=== PATIENT | female | born 1935 | race Caucasian/White ===

== ENCOUNTER 2022-01-16 14:32 | Outpatient (CLI) | payer MEDICARE, BC ==
[2022-01-16 15:37] LABS: Hemoglobin 11.4 g/dL (12.0-15.5); Mean Corpuscular HGB CONC 31.5 g/dL (32.0-36.0); Mean Corpuscular Hemoglobin 30.5 pg (27.0-33.0); Mean Corpuscular Volume 96.8 fl (81.6-98.3); Mean Platelet Volume 10.8 fl (7.4-10.4); Platelet Count 306 10x3/uL (150-450); RBC Distribution Width 15.5 % (11.5-14.5); Red Blood Cell (RBC) Count 3.74 10x6/uL (3.90-5.03); White Blood Cell (WBC) Count 8.3 10x3/uL (3.5-10.5)
[2022-01-16 15:59] LABS: INR-International Normal Ratio 0.9; PTT 24.5 sec (22.0-33.0); Prothrombin Time 9.9 sec (9.5-12.1)
[2022-01-16 16:00] LABS: Anion Gap 15 mmol/L (10-20); BUN (Urea Nitrogen) 29 mg/dL (9.8-20.1); Calc. Creatinine Clearance 0 mL/min (70-130); Calcium 9.5 mg/dL (7.8-10.44); Carbon Dioxide 25 mmol/L (23-31); Chloride 109 mmol/L (98-107); Glucose 115 mg/dL (83-110); Sodium 144 mmol/L (136-145)
[2022-01-17 00:25] LABS: SARS-CoV-2 PCR by NAA Not Detected (NotDetected)
== END 2022-01-16 14:33 | disposition home or self-care (01) ==
LOC: CSHLAB 14:32
PROVIDERS: ATTEND Specialist
DX: Z01.818 Encounter for other preprocedural examination (principal); Z20.822 Contact with and (suspected) exposure to COVID-19
CPT/HCPCS: 80048; 85027; 85610; 85730; 93005; 93010; U0003; U0005

== ENCOUNTER 2022-01-19 08:53 | Inpatient (IN) | payer MEDICARE, BC ==
[2022-01-19] MEDS ORDERED: Aspirin 325 MG TAB ONE (10:03)
[2022-01-19] MEDS ORDERED: Ascorbic Acid 500 mg Chewable Tablet ONE (10:03)
[2022-01-19] MEDS ORDERED: Nitroglycerin 50 MG/250 ML BOT 0 ML ONE (10:56)
[2022-01-19] MEDS ORDERED: Adenosine 6 MG/2 ML VIAL ONE (10:56)
[2022-01-19] MEDS ORDERED: Heparin 10,000 UNITS/ 10 ML VIAL ONE (10:56)
[2022-01-19] MEDS ORDERED: Lidocaine 1% (PF) 30 ML VIAL ONE (10:56)
[2022-01-19] MEDS ORDERED: Fentanyl 100 MCG/2 ML VIAL ONE (11:16)
[2022-01-19] MEDS ORDERED: Midazolam HCl 2 mg/2 ml Vial ONE (11:17)
[2022-01-19] MEDS ORDERED: Acetaminophen/Codeine 30-300mg Tablet PO PRN ×2 (12:41)
[2022-01-19] MEDS ORDERED: Sodium Chloride 0.9% 1,000 ML IV SCH (12:45)
[2022-01-19] MEDS ORDERED: Clopidogrel Bisulfate 75 MG TAB ONE (13:00)
[2022-01-19] MEDS ORDERED: Clopidogrel Bisulfate 75 MG TAB PO SCH (14:00)
[2022-01-19 14:36] VITALS: BMI 18.0
[2022-01-19] MEDS: Aspirin 81 mg Enteric Coated Tablet PO SCH (14:45)
[2022-01-19] MEDS ORDERED: Iopamidol 300 61% 100 ML VIAL FS ONE (15:36)
[2022-01-19] MEDS: Rosuvastatin 20 MG TAB PO SCH (21:03)
[2022-01-19] MEDS: Melatonin 3 MG TAB PO SCH (21:03)
[2022-01-19] MEDS: Cyproheptadine 4 MG TAB PO SCH (21:03)
[2022-01-20 04:58] LABS: ALT (SGPT) 29 U/L (8-55); AST (SGOT) 26 U/L (5-34); Albumin 3.3 g/dL (3.4-4.8); Alkaline Phosphatase 50 U/L (40-110); Anion Gap 13 mmol/L (10-20); BUN (Urea Nitrogen) 22 mg/dL (9.8-20.1); Bilirubin, Total 0.2 mg/dL (0.2-1.2); Calc. Creatinine Clearance 41 mL/min (70-130); Calcium 8.6 mg/dL (7.8-10.44); Carbon Dioxide 23 mmol/L (23-31); Chloride 109 mmol/L (98-107); Globulin 2.2 g/dL (2.4-3.5); Glucose 86 mg/dL (83-110); Potassium 3.8 mmol/L (3.5-5.1); Protein, Total 5.5 g/dL (5.8-8.1); Sodium 141 mmol/L (136-145)
[2022-01-20 04:59] LABS: #Eosinphils 0.1 10x3/uL (0.0-0.5); #Monocytes 0.7 10x3/uL (0.0-1.1); #Neutrophils 5.4 10x3/uL (1.5-8.4); %Basophils 0.3 % (0.0-2.0); %Eosinophils 1.3 % (0.0-6.0); %Lymphocytes 18.2 % (18.0-47.0); %Neutrophils 70.8 % (40.0-75.0); Hemoglobin 9.2 g/dL (12.0-15.5); Mean Corpuscular HGB CONC 32.6 g/dL (32.0-36.0); Mean Corpuscular Hemoglobin 30.7 pg (27.0-33.0); Mean Platelet Volume 10.6 fl (7.4-10.4); Platelet Count 248 10x3/uL (150-450); RBC Distribution Width 15.4 % (11.5-14.5); White Blood Cell (WBC) Count 7.7 10x3/uL (3.5-10.5)
[2022-01-20] MEDS ORDERED: Levothyroxine Sodium 75 MCG TAB PO SCH (06:00)
[2022-01-20] MEDS ORDERED: Clopidogrel Bisulfate 75 MG TAB PO SCH (09:00)
[2022-01-20] MEDS ORDERED: Non-Formulary Medication 1 EACH (Iron [Iron] 18 MG Tablet) PO SCH (09:00)
[2022-01-20] MEDS: Anastrozole 1 MG TAB PO SCH (09:34)
[2022-01-20] MEDS: Multivitamin W/ Minerals 1 TAB PO SCH (09:34)
[2022-01-20] MEDS: Clopidogrel Bisulfate 75 MG TAB PO SCH (09:35)
[2022-01-20] MEDS: Donepezil HCl 5 MG TAB PO SCH (09:35)
[2022-01-20] MEDS: Cyproheptadine 4 MG TAB PO SCH ×2 (09:36→20:02)
[2022-01-20] MEDS ORDERED: Potassium Bicarbonate/Cit Ac 20 MEQ TAB PO SCH (11:00)
[2022-01-20] MEDS ORDERED: Acetaminophen 325 MG TAB PO PRN (11:55)
[2022-01-20 13:24] LABS: Bilirubin Neg (Negative); Blood, Urine 25 (Negative); Clarity Clear (Clear); Glucose, Urine (Dipstick) Normal (Negative); Ketone, Urine 5 mg/dL (Negative); Leukocyte Negative (Negative); Nitrite Negative (Negative); Protein, Urine (Dipstick) Negative (Neg-Trace); Specific Gravity, Urine 1.015 (1.002-1.036); Urine Culture Reflex No No; Urobilinogen Normal mg/dL (Less than 2)
[2022-01-20 13:27] LABS: Bacteria/HPF None Seen HPF (None Seen); RBC/HPF 0-3 HPF (0-3); Squamous Epithelial 0-3 HPF (0-3); WBC/HPF 0-3 HPF (0-3)
[2022-01-20] MEDS: Oseltamivir 75 MG CAP PO SCH (20:02)
[2022-01-20] MEDS: Rosuvastatin 20 MG TAB PO SCH (20:02)
[2022-01-20] MEDS: Melatonin 3 MG TAB PO SCH (20:02)
[2022-01-21] MEDS: Levothyroxine Sodium 75 MCG TAB PO SCH (05:15)
[2022-01-21] MEDS: Multivitamin W/ Minerals 1 TAB PO SCH (09:33)
[2022-01-21] MEDS: Oseltamivir 75 MG CAP PO SCH ×2 (09:33→20:27)
[2022-01-21] MEDS: Cyproheptadine 4 MG TAB PO SCH ×2 (09:33→20:28)
[2022-01-21] MEDS: Donepezil HCl 5 MG TAB PO SCH (09:33)
[2022-01-21] MEDS: Anastrozole 1 MG TAB PO SCH (09:33)
[2022-01-21] MEDS: Clopidogrel Bisulfate 75 MG TAB PO SCH (09:34)
[2022-01-21] MEDS: Aspirin 81 mg Enteric Coated Tablet PO SCH (09:35)
[2022-01-21 11:27] LABS: #Eosinphils 0.1 10x3/uL (0.0-0.5); #Monocytes 0.9 10x3/uL (0.0-1.1); #Neutrophils 5.3 10x3/uL (1.5-8.4); %Basophils 0.4 % (0.0-2.0); %Eosinophils 1.1 % (0.0-6.0); %Lymphocytes 24.9 % (18.0-47.0); %Monocytes 10.4 % (0.0-10.0); %Neutrophils 62.8 % (40.0-75.0); Hemoglobin 7.5 g/dL (12.0-15.5); Mean Corpuscular HGB CONC 30.7 g/dL (32.0-36.0); Mean Corpuscular Hemoglobin 30.5 pg (27.0-33.0); Mean Corpuscular Volume 99.2 fl (81.6-98.3); Mean Platelet Volume 11.1 fl (7.4-10.4); Platelet Count 232 10x3/uL (150-450); RBC Distribution Width 15.8 % (11.5-14.5); Red Blood Cell (RBC) Count 2.46 10x6/uL (3.90-5.03); White Blood Cell (WBC) Count 8.5 10x3/uL (3.5-10.5)
[2022-01-21 11:35] LABS: Anion Gap 12 mmol/L (10-20); BUN (Urea Nitrogen) 47 mg/dL (9.8-20.1); Calc. Creatinine Clearance 40 mL/min (70-130); Calcium 8.6 mg/dL (7.8-10.44); Carbon Dioxide 23 mmol/L (23-31); Chloride 108 mmol/L (98-107); Glucose 133 mg/dL (83-110); Sodium 139 mmol/L (136-145)
[2022-01-21] MEDS ORDERED: Epoetin (NON-ESRD) 20,000 UNITS/ML ML SC SCH (17:00)
[2022-01-21] MEDS: Rosuvastatin 20 MG TAB PO SCH (20:27)
[2022-01-21] MEDS: Melatonin 3 MG TAB PO SCH (20:28)
[2022-01-21] MEDS: Misoprostol 100 MCG TAB PO SCH (20:28)
[2022-01-22] MEDS: Levothyroxine Sodium 75 MCG TAB PO SCH (06:53)
[2022-01-22 10:16] LABS: Hemoglobin 5.6 g/dL (12.0-15.5); Mean Corpuscular HGB CONC 30.8 g/dL (32.0-36.0); Mean Corpuscular Hemoglobin 30.8 pg (27.0-33.0); Mean Platelet Volume 11.3 fl (7.4-10.4); Platelet Count 206 10x3/uL (150-450); RBC Distribution Width 16.3 % (11.5-14.5); Red Blood Cell (RBC) Count 1.82 10x6/uL (3.90-5.03); White Blood Cell (WBC) Count 9.9 10x3/uL (3.5-10.5)
[2022-01-22] MEDS: Clopidogrel Bisulfate 75 MG TAB PO SCH (10:18)
[2022-01-22 10:23] LABS: Anion Gap 13 mmol/L (10-20); BUN (Urea Nitrogen) 53 mg/dL (9.8-20.1); Calc. Creatinine Clearance 38 mL/min (70-130); Calcium 8.4 mg/dL (7.8-10.44); Carbon Dioxide 23 mmol/L (23-31); Chloride 108 mmol/L (98-107); Glucose 137 mg/dL (83-110); Potassium 4.4 mmol/L (3.5-5.1); Sodium 140 mmol/L (136-145)
[2022-01-22] MEDS: Ferrous Sulfate 325 MG TAB PO SCH (10:32)
[2022-01-22] MEDS: Oseltamivir 75 MG CAP PO SCH ×2 (10:33→21:36)
[2022-01-22] MEDS: Cyproheptadine 4 MG TAB PO SCH ×2 (10:33→21:36)
[2022-01-22] MEDS: Donepezil HCl 5 MG TAB PO SCH (10:38)
[2022-01-22] MEDS: Anastrozole 1 MG TAB PO SCH (10:38)
[2022-01-22] MEDS: Multivitamin W/ Minerals 1 TAB PO SCH (10:39)
[2022-01-22] MEDS: Misoprostol 100 MCG TAB PO SCH ×2 (10:39→21:36)
[2022-01-22] MEDS ORDERED: Furosemide 20 MG/2 ML VIAL IVP SCH (11:30)
[2022-01-22] MEDS: Melatonin 3 MG TAB PO SCH (21:36)
[2022-01-22] MEDS: Rosuvastatin 20 MG TAB PO SCH (21:36)
[2022-01-22 23:35] LABS: #Eosinphils 0.1 10x3/uL (0.0-0.5); #Monocytes 1.3 10x3/uL (0.0-1.1); #Neutrophils 9.2 10x3/uL (1.5-8.4); %Basophils 0.3 % (0.0-2.0); %Eosinophils 0.5 % (0.0-6.0); %Neutrophils 71.3 % (40.0-75.0); Hemoglobin 10.4 g/dL (12.0-15.5); Mean Corpuscular HGB CONC 34.7 g/dL (32.0-36.0); Mean Corpuscular Hemoglobin 31.5 pg (27.0-33.0); Mean Corpuscular Volume 90.9 fl (81.6-98.3); Mean Platelet Volume 10.6 fl (7.4-10.4); Platelet Count 206 10x3/uL (150-450); RBC Distribution Width 15.2 % (11.5-14.5); White Blood Cell (WBC) Count 12.9 10x3/uL (3.5-10.5)
[2022-01-23 06:04] LABS: Mean Corpuscular HGB CONC 34.7 g/dL (32.0-36.0); Mean Corpuscular Hemoglobin 31.2 pg (27.0-33.0); Mean Corpuscular Volume 89.7 fl (81.6-98.3); Platelet Count 197 10x3/uL (150-450); RBC Distribution Width 15.8 % (11.5-14.5); Red Blood Cell (RBC) Count 3.21 10x6/uL (3.90-5.03); White Blood Cell (WBC) Count 12.9 10x3/uL (3.5-10.5)
[2022-01-23] MEDS: Levothyroxine Sodium 75 MCG TAB PO SCH (06:07)
[2022-01-23] MEDS: Cyproheptadine 4 MG TAB PO SCH ×2 (09:14→20:22)
[2022-01-23] MEDS: Ferrous Sulfate 325 MG TAB PO SCH (09:14)
[2022-01-23] MEDS: Oseltamivir 75 MG CAP PO SCH ×2 (09:14→20:22)
[2022-01-23] MEDS: Multivitamin W/ Minerals 1 TAB PO SCH (09:45)
[2022-01-23] MEDS: Anastrozole 1 MG TAB PO SCH (09:45)
[2022-01-23] MEDS: Misoprostol 100 MCG TAB PO SCH ×2 (09:45→20:22)
[2022-01-23] MEDS: Donepezil HCl 5 MG TAB PO SCH (09:45)
[2022-01-23] MEDS: Melatonin 3 MG TAB PO SCH (20:22)
[2022-01-23] MEDS: Rosuvastatin 20 MG TAB PO SCH (20:22)
[2022-01-24 05:39] LABS: ALT (SGPT) 25 U/L (8-55); AST (SGOT) 26 U/L (5-34); Albumin 3.2 g/dL (3.4-4.8); Alkaline Phosphatase 49 U/L (40-110); Anion Gap 13 mmol/L (10-20); BUN (Urea Nitrogen) 21 mg/dL (9.8-20.1); Bilirubin, Total 0.5 mg/dL (0.2-1.2); CK (CPK) 49 U/L (29-168); Calc. Creatinine Clearance 40 mL/min (70-130); Calcium 8.6 mg/dL (7.8-10.44); Carbon Dioxide 24 mmol/L (23-31); Chloride 108 mmol/L (98-107); Globulin 2.2 g/dL (2.4-3.5); Glucose 94 mg/dL (83-110); Potassium 3.5 mmol/L (3.5-5.1); Protein, Total 5.4 g/dL (5.8-8.1); Sodium 141 mmol/L (136-145)
[2022-01-24] MEDS: Levothyroxine Sodium 75 MCG TAB PO SCH (06:18)
[2022-01-24 06:58] LABS: #Eosinphils 0.1 10x3/uL (0.0-0.5); #Neutrophils 7.2 10x3/uL (1.5-8.4); %Basophils 0.3 % (0.0-2.0); %Eosinophils 0.9 % (0.0-6.0); %Lymphocytes 19.6 % (18.0-47.0); %Monocytes 9.9 % (0.0-10.0); %Neutrophils 68.6 % (40.0-75.0); Hemoglobin 10.1 g/dL (12.0-15.5); Mean Corpuscular HGB CONC 33.6 g/dL (32.0-36.0); Mean Corpuscular Hemoglobin 31.6 pg (27.0-33.0); Mean Corpuscular Volume 94.1 fl (81.6-98.3); Platelet Count 200 10x3/uL (150-450); RBC Distribution Width 16.2 % (11.5-14.5); White Blood Cell (WBC) Count 10.5 10x3/uL (3.5-10.5)
[2022-01-24] MEDS: Cyproheptadine 4 MG TAB PO SCH ×2 (09:01→20:16)
[2022-01-24] MEDS: Misoprostol 100 MCG TAB PO SCH ×2 (09:02→20:16)
[2022-01-24] MEDS: Multivitamin W/ Minerals 1 TAB PO SCH (09:02)
[2022-01-24] MEDS: Ferrous Sulfate 325 MG TAB PO SCH (09:02)
[2022-01-24] MEDS: Anastrozole 1 MG TAB PO SCH (09:02)
[2022-01-24] MEDS: Oseltamivir 75 MG CAP PO SCH ×2 (09:03→20:16)
[2022-01-24] MEDS: Donepezil HCl 5 MG TAB PO SCH (09:32)
[2022-01-24] MEDS ORDERED: Potassium Chloride 20 MEQ TAB PO SCH (10:00)
[2022-01-24] MEDS ORDERED: Iron Sucrose Complex 200 MG in Sodium Chloride 0.9% 100 ML IVPB SCH (15:15)
[2022-01-24] MEDS ORDERED: Iron, Sodium Ferric Gluconate 250 MG in Sodium Chloride 0.9% 250 ML 250 ML IVPB SCH (16:00)
[2022-01-24] MEDS: Rosuvastatin 20 MG TAB PO SCH (20:16)
[2022-01-24] MEDS: Melatonin 3 MG TAB PO SCH (20:17)
[2022-01-25 05:17] LABS: Hemoglobin 9.7 g/dL (12.0-15.5)
[2022-01-25] MEDS: Levothyroxine Sodium 75 MCG TAB PO SCH (06:09)
[2022-01-25] MEDS: Donepezil HCl 5 MG TAB PO SCH (09:19)
[2022-01-25] MEDS: Oseltamivir 75 MG CAP PO SCH (09:19)
[2022-01-25] MEDS: Multivitamin W/ Minerals 1 TAB PO SCH (09:19)
[2022-01-25] MEDS: Misoprostol 100 MCG TAB PO SCH ×2 (09:19→20:18)
[2022-01-25] MEDS: Anastrozole 1 MG TAB PO SCH (09:19)
[2022-01-25] MEDS: Cyproheptadine 4 MG TAB PO SCH ×2 (09:19→20:18)
[2022-01-25] MEDS ORDERED: Clopidogrel Bisulfate 75 MG TAB PO SCH (13:00)
[2022-01-25] MEDS: Rosuvastatin 20 MG TAB PO SCH (20:18)
[2022-01-25] MEDS: Melatonin 3 MG TAB PO SCH (20:18)
[2022-01-26 05:37] LABS: Anion Gap 14 mmol/L (10-20); BUN (Urea Nitrogen) 14 mg/dL (9.8-20.1); Calc. Creatinine Clearance 41 mL/min (70-130); Calcium 8.6 mg/dL (7.8-10.44); Carbon Dioxide 23 mmol/L (23-31); Chloride 106 mmol/L (98-107); Glucose 97 mg/dL (83-110); Potassium 3.7 mmol/L (3.5-5.1); Sodium 139 mmol/L (136-145)
[2022-01-26 05:41] LABS: Hemoglobin 9.7 g/dL (12.0-15.5); Mean Corpuscular HGB CONC 33.8 g/dL (32.0-36.0); Mean Corpuscular Volume 94.7 fl (81.6-98.3); Mean Platelet Volume 10.7 fl (7.4-10.4); Platelet Count 248 10x3/uL (150-450); RBC Distribution Width 16.8 % (11.5-14.5); Red Blood Cell (RBC) Count 3.03 10x6/uL (3.90-5.03); White Blood Cell (WBC) Count 11.6 10x3/uL (3.5-10.5)
[2022-01-26] MEDS ORDERED: Potassium Chloride 20 MEQ TAB PO SCH (06:30)
[2022-01-26] MEDS: Levothyroxine Sodium 75 MCG TAB PO SCH (06:55)
[2022-01-26] MEDS: Donepezil HCl 5 MG TAB PO SCH (08:56)
[2022-01-26] MEDS: Multivitamin W/ Minerals 1 TAB PO SCH (08:56)
[2022-01-26] MEDS: Cyproheptadine 4 MG TAB PO SCH (08:56)
[2022-01-26] MEDS: Anastrozole 1 MG TAB PO SCH (08:57)
[2022-01-26] MEDS: Misoprostol 100 MCG TAB PO SCH (08:59)
[2022-01-26] MEDS ORDERED: Clopidogrel Bisulfate 75 MG TAB PO SCH (09:00)
[2022-01-26 12:18] VITALS: BP 130/54; TEMP 97.1
== END 2022-01-26 13:23 | DRG 247 ==
LOC: CSHCCL 08:53 → CSHTELE 14:11
PROVIDERS: ADMIT Specialist; ATTEND Specialist
PROC: 027034Z Dilation of Coronary Artery, One Artery with Drug-eluting Intraluminal Device, Percutaneous Approach (ICD-10-PCS; principal; 2022-01-19)
PROC: 4A023N7 Measurement of Cardiac Sampling and Pressure, Left Heart, Percutaneous Approach (ICD-10-PCS; 2022-01-19)
PROC: B2111ZZ Fluoroscopy of Multiple Coronary Arteries using Low Osmolar Contrast (ICD-10-PCS; 2022-01-19)
PROC: B2151ZZ Fluoroscopy of Left Heart using Low Osmolar Contrast (ICD-10-PCS; 2022-01-19)
PROC: B2131ZZ Fluoroscopy of Multiple Coronary Artery Bypass Grafts using Low Osmolar Contrast (ICD-10-PCS; 2022-01-19)
PROC: 30233N1 Transfusion of Nonautologous Red Blood Cells into Peripheral Vein, Percutaneous Approach (ICD-10-PCS; 2022-01-22)
DX: T82.855A Stenosis of coronary artery stent, initial encounter (principal); I25.810 Atherosclerosis of coronary artery bypass graft(s) without angina pectoris; I50.42 Chronic combined systolic (congestive) and diastolic (congestive) heart failure; K92.2 Gastrointestinal hemorrhage, unspecified; I11.0 Hypertensive heart disease with heart failure; F03.90 Unspecified dementia, unspecified severity, without behavioral disturbance, psychotic disturbance, mood disturbance, and anxiety; J10.1 Influenza due to other identified influenza virus with other respiratory manifestations; D50.9 Iron deficiency anemia, unspecified; R53.81 Other malaise; E78.5 Hyperlipidemia, unspecified; I95.9 Hypotension, unspecified; E03.9 Hypothyroidism, unspecified; Y83.8 Other surgical procedures as the cause of abnormal reaction of the patient, or of later complication, without mention of misadventure at the time of the procedure; Z90.89 Acquired absence of other organs; Z90.49 Acquired absence of other specified parts of digestive tract; Z85.3 Personal history of malignant neoplasm of breast; Z95.1 Presence of aortocoronary bypass graft; Z95.5 Presence of coronary angioplasty implant and graft; Z79.899 Other long term (current) drug therapy; Z79.890 Hormone replacement therapy; Z79.02 Long term (current) use of antithrombotics/antiplatelets; I25.2 Old myocardial infarction
CPT/HCPCS: 36415; 36430; 74176; 80048; 80053; 81001; 82274; 82550; 82728; 83540; 85014; 85018; 85025; 85027; 85610; 85730; 86850; 86900; 86901; 87804; 92937; 93005; 93010; 93459; C1760; C1769; C1874; C1887; J0153; J0885; J1644; J2001; J2250; J2916; J3010; J7050; P9016; Q9967; U0003; U0005